=== PATIENT | female | born 1990 | race African-American/Black ===

== ENCOUNTER 2017-07-14 16:45 | Emergency (ER) | payer MEDICAID | END 2017-07-14 18:52 | disposition home or self-care (01) | LOC: D.ER 16:45 | DX: S80.11XA Contusion of right lower leg, initial encounter (principal); S50.11XA Contusion of right forearm, initial encounter; S80.12XA Contusion of left lower leg, initial encounter; S50.02XA Contusion of left elbow, initial encounter; S20.229A Contusion of unspecified back wall of thorax, initial encounter; Y04.2XXA Assault by strike against or bumped into by another person, initial encounter; Y93.89 Activity, other specified; Y92.89 Other specified places as the place of occurrence of the external cause; F17.200 Nicotine dependence, unspecified, uncomplicated ==

== ENCOUNTER 2017-12-31 18:09 | Emergency (ER) | payer SELFPAY ==
[~2017-12-31] VITALS: Ht 167.6 cm; Wt 75.0 kg
[2017-12-31 18:21] VITALS: Ht 167.6 cm; Wt 75.0 kg
[2017-12-31] MEDS ORDERED: PENICILLIN V P500 MG PO (19:48)
[2017-12-31 20:22] VITALS: BP 103/57
== END 2017-12-31 20:22 | disposition home or self-care (01) ==
LOC: D.ER 18:09
DX: J02.0 Streptococcal pharyngitis (principal); F17.200 Nicotine dependence, unspecified, uncomplicated

== ENCOUNTER 2018-03-26 11:33 | Emergency (ER) | payer SELFPAY ==
[~2018-03-26 11:33] MED LIST: PENICILLIN V P500 MG PO
[2018-03-26 11:38] VITALS: Ht 167.6 cm
[2018-03-26] MEDS ORDERED: AUGMENTIN 875-11 TAB PO (13:47)
[2018-03-26] MEDS ORDERED: TORADOL10 MG PO (13:47)
[2018-03-26 13:56] VITALS: BP 112/088
== END 2018-03-26 13:58 | disposition home or self-care (01) ==
LOC: D.ER 11:33
DX: S61.253A Open bite of left middle finger without damage to nail, initial encounter (principal); Y04.1XXA Assault by human bite, initial encounter; Y93.89 Activity, other specified; Y92.89 Other specified places as the place of occurrence of the external cause